=== PATIENT | female | born 1955 | race African-American/Black ===

== ENCOUNTER 2017-02-17 15:25 | Emergency (ER) | payer SELFPAY ==
[~2017-02-17] VITALS: Ht 157.5 cm; Wt 63.5 kg
[~2017-02-17 15:25] MED LIST: ASPI325T8; CYCL10TA2 PO; EZET1TAB30 PO; FLUT1DIS IH; HYDR-2758 PO; IBUP-1027 PO; IBUP200T77 PO; LISI10TA2 PO; MONT10TA6; MULT1CAP15; NITR0.4T; OMEG300C; PANT20TA2 PO; PROAIR HFA8.5 GM IH; TRAM50TA PO; VENTOLIN HFA18 GM
[2017-02-17] MEDS ORDERED: traMADol 50 MG TABLET PO ONE (16:00)
[2017-02-17 16:03] VITALS: BP 136/70
[2017-02-17 16:25] LABS: BASO # 0.1 x10^3/uL (0.0-0.2); BASO % 1 % (0-3); EOS % 1 % (0-3); HEMATOCRIT 46.2 % (36.0-47.0); HEMOGLOBIN 15.4 g/dL (12.0-15.5); LYMPH # 2.1 x10^3/uL (1.0-4.8); LYMPH % 20 % (24-48); MEAN CORPUSCULAR HEMOGLOBIN 32 pg (25-35); MEAN CORPUSCULAR HGB CONC 33 g/dL (31-37); MEAN CORPUSCULAR VOLUME 96 fL (79-100); MONO % 3 % (0-9); NEUT % 75 % (31-73); PLATELET COUNT 257 x10^3/uL (140-400); RED CELL DISTRIBUTION WIDTH 14.3 % (11.5-14.5); WHITE BLOOD COUNT 10.5 x10^3/uL (4.0-11.0)
--- NOTE | 2017-02-17 16:26 | RAD ---
2 views of the Chest 02/17/2017 5:49 PM Indication: Coughing up blood since 2:00 PM Comparison: None Findings: No pneumothorax, pleural effusion, or focal infiltrate is identified. The lungs appear mildly hyperexpanded. Correlate with evidence of COPD. Mild areas of interstitial coarsening or scarring may be present. Heart size is normal. Mild aortic calcification is noted. No acute osseous abnormalities are appreciated. Impression: Possible changes of COPD. Correlate clinically. No evidence of acute cardiopulmonary process is seen
[2017-02-17 16:34] LABS: INR 1.1 (0.8-1.1); PROTHROMBIN TIME PATIENT 13.4 SEC (11.7-14.0)
[2017-02-17 16:36] LABS: CALCIUM 9.4 mg/dL (8.5-10.1); CREATININE 0.8 mg/dL (0.6-1.0); GFR 88.8; POTASSIUM 4.3 mmol/L (3.5-5.1)
[2017-02-17 16:41] LABS: ALBUMIN 3.7 g/dL (3.4-5.0); ALBUMIN/GLOBULIN RATIO 0.9 (1.0-1.7); TOTAL BILIRUBIN 0.3 mg/dL (0.2-1.0)
--- NOTE | 2017-02-17 17:29 | PHYS DOC ---
Past Medical History Past Medical History: Arthritis, Bronchitis, Gallstones, High Cholesterol, Heart Disease, Hypertension, [place], Other Additional Past Medical Histor: seasonal allergies, R ankle fx, chronic back and ankle pain Past Surgical History: Appendectomy, Cholecystectomy, Tubal ligation, Other Additional Past Surgical Histo: ankle Alcohol Use: None Drug Use: None Adult General Chief Complaint Chief Complaint: OTHER COMPLAINTS HPI HPI Patient is a 61 year old female who presents here today secondary to an episode of spitting up blood tinged sputum. Patient reports it occurred approximately 2 PM. Patient denies any tobacco alcohol or drugs. Patient has had her flu shot. Patient denies any diabetes liver longer kidney problems. Patient portion does have hypertension. Patient has no known drug allergies. Patient is status post cholecystectomy appendectomy and bilateral tubal ligation. Patient has any fevers shakes chills nausea vomiting diarrhea or cough. Patient reports she has been sneezing has had rhinorrhea. Patient has any abdominal pain chest pain or shortness of breath. Review of systems: Constitutional: Denies fever or chills Eyes: Denies change in visual acuity, redness, or eye pain All other systems were reviewed and found to be within normal limits, except as documented in this note. Physical exam: Constitutional: Well developed, well nourished, no acute distress, non-toxic appearance. HENT: Normocephalic, atraumatic, bilateral external ears normal, Eyes: EOMI, conjunctiva normal, no discharge. Neck: Normal range of motion, no tenderness, supple, no stridor. Cardiovascular:Heart rate regular rhythm Lungs & Thorax: Bilateral breath sounds clear to auscultation Abdomen: Bowel sounds normal, soft, no tenderness, no masses, no pulsatile masses. Skin: Warm, dry, no erythema, no rash. Back: No tenderness, no CVA tenderness. Extremities: No tenderness, no cyanosis, no clubbing, ROM intact, no edema. Neurologic: Alert and oriented X 3, normal motor function, normal sensory function, no focal deficits noted. Psychologic: Affect normal, judgement normal, mood normal. Assessment and plan Patient's ER workup is been unremarkable. Patient will be discharged home in stable condition. Patient's CBC chemistry have been within normal limits. Patient's chest x-ray does not show any acute pathology. While in the ER the patient had no further episodes of hemoptysis. Patient be discharged home with instructions follow-up with a primary care physician for reevaluation and routine healthcare management issues. She has declined any pain medicines for her lower back. Current Medications Current Medications Current Medications Medications (Trade) Dose Ordered Sig/Nyla Start Time Stop Time Status Last Admin Dose Admin Tramadol HCl (Ultram) 50 mg 1X ONCE 02/17/17 16:00 02/17/17 16:01 DC Allergies Allergies Allergies Coded Allergies Type Severity Reaction Last Updated Verified simvastatin Adverse Reaction Intermediate Muscle cramping 12/18/14 Yes Current Patient Data Vital Signs Vital Signs Date Time Temp Pulse Resp B/P (MAP) Pulse Ox O2 Delivery O2 Flow Rate FiO2 02/17/17 16:03 68 136/70 (92) 95 02/17/17 15:30 99.1 16 Room Air 99.1 Lab Values Laboratory Tests Test 02/17/17 16:20 White Blood Count 10.5 x10^3/uL (4.0-11.0) Red Blood Count 4.80 x10^6/uL (3.50-5.40) Hemoglobin 15.4 g/dL (12.0-15.5) Hematocrit 46.2 % (36.0-47.0) Mean Corpuscular Volume 96 fL (79-100) Mean Corpuscular Hemoglobin 32 pg (25-35) Mean Corpuscular Hemoglobin Concent 33 g/dL (31-37) Red Cell Distribution Width 14.3 % (11.5-14.5) Platelet Count 257 x10^3/uL (140-400) Neutrophils (%) (Auto) 75 % (31-73) H Lymphocytes (%) (Auto) 20 % (24-48) L Monocytes (%) (Auto) 3 % (0-9) Eosinophils (%) (Auto) 1 % (0-3) Basophils (%) (Auto) 1 % (0-3) Neutrophils # (Auto) 7.9 x10^3uL (1.8-7.7) H Lymphocytes # (Auto) 2.1 x10^3/uL (1.0-4.8) Monocytes # (Auto) 0.4 x10^3/uL (0.0-1.1) Eosinophils # (Auto) 0.1 x10^3/uL (0.0-0.7) Basophils # (Auto) 0.1 x10^3/uL (0.0-0.2) Prothrombin Time 13.4 SEC (11.7-14.0) Prothrombin Time INR 1.1 (0.8-1.1) Sodium Level 146 mmol/L (136-145) H Potassium Level 4.3 mmol/L (3.5-5.1) Chloride Level 108 mmol/L (98-107) H Carbon Dioxide Level 31 mmol/L (21-32) Anion Gap 7 (6-14) Blood Urea Nitrogen 16 mg/dL (7-20) Creatinine 0.8 mg/dL (0.6-1.0) Estimated GFR (Cockcroft-Gault) 88.8 BUN/Creatinine Ratio 20 (6-20) Glucose Level 93 mg/dL (70-99) Calcium Level 9.4 mg/dL (8.5-10.1) Total Bilirubin 0.3 mg/dL (0.2-1.0) Aspartate Amino Transferase (AST) 13 U/L (15-37) L Alanine Aminotransferase (ALT) 15 U/L (14-59) Alkaline Phosphatase 49 U/L (46-116) Total Protein 8.0 g/dL (6.4-8.2) Albumin 3.7 g/dL (3.4-5.0) Albumin/Globulin Ratio 0.9 (1.0-1.7) L Laboratory Tests 02/17/17 16:20 Laboratory Tests 02/17/17 16:20 EKG EKG [] Radiology/Procedures Radiology/Procedures [] Course & Med Decision Making Course & Med Decision Making Pertinent Labs and Imaging studies reviewed. (See chart for details) [] Dragon Disclaimer Dragon Disclaimer This electronic medical record was generated, in whole or in part, using a voice recognition dictation system. Departure Departure Impression: Primary Impression: Hemoptysis Disposition: HOME, SELF-CARE Condition: STABLE Referrals: NON,STAFF (PCP) Patient Instructions: Hemoptysis NICOLASA VILLALOBOS MD Feb 17, 2017 17:29
== END 2017-02-17 17:37 | disposition home or self-care (01) ==
LOC: ER 15:25
DX: R04.2 Hemoptysis (principal); M19.90 Unspecified osteoarthritis, unspecified site; E78.00 Pure hypercholesterolemia, unspecified; I11.9 Hypertensive heart disease without heart failure; I25.2 Old myocardial infarction; G89.29 Other chronic pain; Z90.49 Acquired absence of other specified parts of digestive tract; Z88.8 Allergy status to other drugs, medicaments and biological substances
CPT/HCPCS: 36415; 71020; 80053; 85025; 85610; 99285-25

== ENCOUNTER 2017-03-02 20:38 | Emergency (ER) | payer SELFPAY ==
[~2017-03-02] VITALS: Ht 157.5 cm; Wt 63.5 kg
--- NOTE | 2017-03-02 20:45 | PHYS DOC ---
Past Medical History Past Medical History: Arthritis, Bronchitis, Gallstones, High Cholesterol, Heart Disease, Hypertension, [place], Other Additional Past Medical Histor: seasonal allergies, R ankle fx, chronic back and ankle pain Past Surgical History: Appendectomy, Cholecystectomy, Tubal ligation, Other Additional Past Surgical Histo: ankle Alcohol Use: None Drug Use: None Adult General Chief Complaint Chief Complaint: GI PROBLEM HPI HPI Patient is a 61 year old female presenting to the emergency department for evaluation of hemoptysis that has been an off and on issue for several weeks. She was seen for the same thing on February 17 and sent home. She says that today she has been coughing quite a bit and has been productive of a yellowish mucus and she has left-sided chest pain when she coughs. She said that after 1 coughing spell she spit out some blood from her mouth and this concerned her and she came to the emergency department. She denies any shortness of breath or pleuritic chest pain fevers chills nausea vomiting or other systemic symptoms. Smoke a pack of cigarettes a day but does not follow with a crossing watchman. Her heart rate an auction saturation are normal. Review of Systems Review of Systems Constitutional: Denies fever or chills [] HENT: + nasal congestion. No sore throat [] Respiratory: + cough. No shortness of breath [] Cardiovascular: No additional information not addressed in HPI [] GI: Denies abdominal pain, nausea, vomiting, bloody stools or diarrhea [] Neurologic: Denies headache, focal weakness or sensory changes [] All other systems were reviewed and found to be within normal limits, except as documented in this note. Current Medications Current Medications Current Medications Medications (Trade) Dose Ordered Sig/Nyla Start Time Stop Time Status Last Admin Dose Admin Albuterol/ Ipratropium (Duoneb) 3 ml 1X ONCE 03/02/17 21:15 03/02/17 21:16 DC 03/02/17 21:36 3 ML Oxymetazoline HCl (Afrin) 2 spray 1X ONCE 03/02/17 21:30 03/02/17 21:31 DC 03/02/17 21:30 2 SPRAY Allergies Allergies Allergies Coded Allergies Type Severity Reaction Last Updated Verified simvastatin Adverse Reaction Intermediate Muscle cramping 12/18/14 Yes Physical Exam Physical Exam Constitutional: Well developed, well nourished, no acute distress, non-toxic appearance. [] HENT: Normocephalic, atraumatic, bilateral external ears normal, oropharynx moist, no oral exudates, nose normal. [] Eyes: PERRLA, EOMI, conjunctiva normal, no discharge. [] Neck: Normal range of motion, no tenderness, supple, no stridor. [] Cardiovascular:Heart rate regular rhythm, no murmur [] Lungs & Thorax: Diminished Bilateral breath sounds with expiratory wheezing noted] Current Patient Data Vital Signs Vital Signs Date Time Temp Pulse Resp B/P (MAP) Pulse Ox O2 Delivery O2 Flow Rate FiO2 03/02/17 21:38 96 Room Air 03/02/17 20:43 98.4 72 14 161/77 (105) 98.4 Lab Values Laboratory Tests Test 03/02/17 21:10 03/02/17 21:30 Sodium Level 143 mmol/L (136-145) Potassium Level 3.6 mmol/L (3.5-5.1) Chloride Level 107 mmol/L (98-107) Carbon Dioxide Level 26 mmol/L (21-32) Anion Gap 10 (6-14) Blood Urea Nitrogen 12 mg/dL (7-20) Creatinine 0.8 mg/dL (0.6-1.0) Estimated GFR (Cockcroft-Gault) 88.8 BUN/Creatinine Ratio 15 (6-20) Glucose Level 105 mg/dL (70-99) H Calcium Level 9.1 mg/dL (8.5-10.1) Total Bilirubin 0.4 mg/dL (0.2-1.0) Aspartate Amino Transferase (AST) 15 U/L (15-37) Alanine Aminotransferase (ALT) 20 U/L (14-59) Alkaline Phosphatase 40 U/L (46-116) L Total Protein 7.6 g/dL (6.4-8.2) Albumin 3.9 g/dL (3.4-5.0) Albumin/Globulin Ratio 1.1 (1.0-1.7) White Blood Count 10.5 x10^3/uL (4.0-11.0) Red Blood Count 4.58 x10^6/uL (3.50-5.40) Hemoglobin 14.7 g/dL (12.0-15.5) Hematocrit 43.7 % (36.0-47.0) Mean Corpuscular Volume 96 fL (79-100) Mean Corpuscular Hemoglobin 32 pg (25-35) Mean Corpuscular Hemoglobin Concent 34 g/dL (31-37) Red Cell Distribution Width 14.1 % (11.5-14.5) Platelet Count 233 x10^3/uL (140-400) Neutrophils (%) (Auto) 67 % (31-73) Lymphocytes (%) (Auto) 27 % (24-48) Monocytes (%) (Auto) 4 % (0-9) Eosinophils (%) (Auto) 2 % (0-3) Basophils (%) (Auto) 1 % (0-3) Neutrophils # (Auto) 7.0 x10^3uL (1.8-7.7) Lymphocytes # (Auto) 2.8 x10^3/uL (1.0-4.8) Monocytes # (Auto) 0.4 x10^3/uL (0.0-1.1) Eosinophils # (Auto) 0.2 x10^3/uL (0.0-0.7) Basophils # (Auto) 0.1 x10^3/uL (0.0-0.2) Prothrombin Time 14.0 SEC (11.7-14.0) Prothrombin Time INR 1.2 (0.8-1.1) H PTT 29 SEC (24-38) Laboratory Tests 03/02/17 21:30 Laboratory Tests 03/02/17 21:10 EKG EKG [] Radiology/Procedures Radiology/Procedures Chest x-ray shows normal mediastinum and normal heart size no obvious free air pneumothorax or opacity. Course & Med Decision Making Course & Med Decision Making Patient with trace hemoptysis and no other concerning signs or symptoms. Is likely from bronchitis and I do not suspect a massive amount of bleeding in her chest or pulmonary embolus him at this time given she appears well with normal vital signs. I do think that she should be seen by a crossing watchman as cancer is a consideration giving her prolonged smoking history. Her to use Afrin twice daily use her nebulizers more often stop smoking and to see the crossing watchman as soon as possible and come back to the ED sooner with worsening pain shortness of breath or other general concerns. Patient says that it hurts when she coughs I will prescribe her [place] for now. Patient aware and agreeable with plan for discharge and verbalized understanding of the need for short-term follow-up in the strict ED return precautions discussed as above. Dragon Disclaimer Dragon Disclaimer This electronic medical record was generated, in whole or in part, using a voice recognition dictation system. Departure Departure Impression: Primary Impression: Bronchitis Additional Impression: Hemoptysis Disposition: HOME, SELF-CARE Condition: STABLE Referrals: LISSET GUDINO MD Patient Instructions: Hemoptysis Additional Instructions: USE AFRIN TWICE DAILY AND YOUR NEBULIZER EVERY 4-6 HOURS. STOP SMOKING. FOLLOW WITH THE LUNG DOCTOR SOON YOU CAN AND COME BACK TO THE ED WITH WORSENING PAIN, SOA, OR OTHER GENERAL CONCERNS. THANK YOU! Scripts Hydrocodone/Apap 5-325 (NORCO 5-325 TABLET) 1 Each Tablet 1 TAB PO PRN Q6HRS Y for PAIN, #14 TAB 0 Refills Prov: JENNIFER GEORGES DO 03/02/17 Problem Qualifiers JENNIFER GEORGES DO Mar 02, 2017 20:45
[2017-03-02] MEDS ORDERED: IPRATRPIUM/ALBUTEROL 0.5/2.5MG 3 ML NEBU. NEB ONE (21:15)
[2017-03-02] MEDS ORDERED: OXYMETAZOLINE 0.05% NASAL SPRAY 30ML BOTTLE. NS ONE (21:30)
[2017-03-02 21:35] LABS: CALCIUM 9.1 mg/dL (8.5-10.1); CREATININE 0.8 mg/dL (0.6-1.0); GFR 88.8; POTASSIUM 3.6 mmol/L (3.5-5.1)
[2017-03-02 21:40] LABS: ALBUMIN 3.9 g/dL (3.4-5.0); ALBUMIN/GLOBULIN RATIO 1.1 (1.0-1.7); TOTAL BILIRUBIN 0.4 mg/dL (0.2-1.0); TOTAL PROTEIN 7.6 g/dL (6.4-8.2)
[2017-03-02 21:40] LABS: BASO # 0.1 x10^3/uL (0.0-0.2); BASO % 1 % (0-3); EOS % 2 % (0-3); HEMATOCRIT 43.7 % (36.0-47.0); HEMOGLOBIN 14.7 g/dL (12.0-15.5); LYMPH # 2.8 x10^3/uL (1.0-4.8); LYMPH % 27 % (24-48); MEAN CORPUSCULAR HEMOGLOBIN 32 pg (25-35); MEAN CORPUSCULAR HGB CONC 34 g/dL (31-37); MEAN CORPUSCULAR VOLUME 96 fL (79-100); MONO % 4 % (0-9); NEUT % 67 % (31-73); PLATELET COUNT 233 x10^3/uL (140-400); RED BLOOD COUNT 4.58 x10^6/uL (3.50-5.40); RED CELL DISTRIBUTION WIDTH 14.1 % (11.5-14.5); WHITE BLOOD COUNT 10.5 x10^3/uL (4.0-11.0)
[2017-03-02 21:49] LABS: INR 1.2 (0.8-1.1)
[2017-03-02 21:54] VITALS: BP 143/71
[2017-03-02] MEDS ORDERED: HYDR-971 PO (22:00)
--- NOTE | 2017-03-03 08:14 | RAD ---
EXAM: Chest 2 views. HISTORY: Left chest pain, hemoptysis, hypertension. COMPARISON: 02/17/2017. FINDINGS: Frontal and lateral views of the chest are obtained. Hyperinflation suggests chronic obstructive pulmonary disease. There appears to be mild airspace infiltrate in the lingula. Linear opacities in the right base are mildly increased. There are atherosclerotic calcifications of the aorta. There is no pneumothorax or pleural effusion. The heart is not enlarged. IMPRESSION: 1. Mildly increased bibasilar infiltrates. Correlate for aspiration or atypical pneumonic process. Recommend ongoing follow-up for hemoptysis. 2. Hyperinflation suggests chronic obstructive pulmonary disease.
== END 2017-03-02 22:17 | disposition home or self-care (01) ==
LOC: ER 20:38
DX: R04.2 Hemoptysis (principal); J40 Bronchitis, not specified as acute or chronic; G89.29 Other chronic pain; I11.9 Hypertensive heart disease without heart failure; E78.00 Pure hypercholesterolemia, unspecified; I25.2 Old myocardial infarction; F17.210 Nicotine dependence, cigarettes, uncomplicated; Z90.49 Acquired absence of other specified parts of digestive tract; Z90.710 Acquired absence of both cervix and uterus; Z88.8 Allergy status to other drugs, medicaments and biological substances
CPT/HCPCS: 36415; 71020; 80053; 85025; 85610; 85730; 94640; 99285; J7620

== ENCOUNTER 2017-04-26 11:56 | Emergency (ER) | payer SELFPAY ==
[2017-04-26 12:46] LABS: ADD MAN DIFF? NO; BASO # 0.1 x10^3/uL (0.0-0.2); BASO % 1 % (0-3); EOS # 0.1 x10^3/uL (0.0-0.7); EOS % 1 % (0-3); HEMATOCRIT 44.2 % (36.0-47.0); HEMOGLOBIN 14.8 g/dL (12.0-15.5); LYMPH % 23 % (24-48); MEAN CORPUSCULAR HEMOGLOBIN 33 pg (25-35); MEAN CORPUSCULAR HGB CONC 34 g/dL (31-37); MEAN CORPUSCULAR VOLUME 97 fL (79-100); MONO # 0.2 x10^3/uL (0.0-1.1); MONO % 3 % (0-9); NEUT # 6.6 x10^3uL (1.8-7.7); NEUT % 73 % (31-73); PLATELET COUNT 251 x10^3/uL (140-400); RED BLOOD COUNT 4.55 x10^6/uL (3.50-5.40); RED CELL DISTRIBUTION WIDTH 14.1 % (11.5-14.5)
[2017-04-26 12:55] LABS: INR 1.1 (0.8-1.1); PROTHROMBIN TIME PATIENT 13.5 SEC (11.7-14.0)
[2017-04-26 13:03] LABS: ANION GAP 14 (6-14); BLOOD UREA NITROGEN 13 mg/dL (7-20); BUN/CREATININE RATIO 19 (6-20); CALCIUM 9.2 mg/dL (8.5-10.1); CARBON DIOXIDE 24 mmol/L (21-32); CHLORIDE 106 mmol/L (98-107); CREATININE 0.7 mg/dL (0.6-1.0); GFR 103.6; GLUCOSE 166 mg/dL (70-99); POTASSIUM 3.9 mmol/L (3.5-5.1); SODIUM 144 mmol/L (136-145)
[2017-04-26 13:10] LABS: ALBUMIN/GLOBULIN RATIO 1.1 (1.0-1.7); ALK PHOS 43 U/L (46-116); ALT (SGPT) 17 U/L (14-59); AST (SGOT) 14 U/L (15-37); TOTAL BILIRUBIN 0.5 mg/dL (0.2-1.0); TOTAL PROTEIN 7.8 g/dL (6.4-8.2)
[2017-04-26 13:14] LABS: CKMB INDEX 0.6 % (0-4); CKMB MASS 0.5 ng/mL (0.0-3.6); CREATINE KINASE 89 U/L (26-192)
[2017-04-26 13:14] LABS: NT-PRO BNP 118 pg/mL (0-124)
[2017-04-26 13:15] LABS: TROPONINI < 0.017 ng/mL (0.000-0.055)
[2017-04-26] MEDS ORDERED: NITROGLYCERIN SUBLINGUAL 0.4 MG BOTTLE OF 25. SL (14:30)
== END 2017-04-26 15:40 | disposition left against medical advice (07) ==
LOC: ER 15:40
DX: R07.89 Other chest pain (principal); M25.512 Pain in left shoulder; M25.562 Pain in left knee; M19.90 Unspecified osteoarthritis, unspecified site; I25.10 Atherosclerotic heart disease of native coronary artery without angina pectoris; E78.00 Pure hypercholesterolemia, unspecified; I11.9 Hypertensive heart disease without heart failure; I25.2 Old myocardial infarction; F17.200 Nicotine dependence, unspecified, uncomplicated; G89.29 Other chronic pain; Z79.82 Long term (current) use of aspirin; Z90.49 Acquired absence of other specified parts of digestive tract; Z98.51 Tubal ligation status; Z88.8 Allergy status to other drugs, medicaments and biological substances
CPT/HCPCS: 36415; 71045; 80053; 82553; 83735; 83880; 84484; 85025; 85610; 93005; 99285-25

== ENCOUNTER 2018-05-01 10:45 | Emergency (ER) | payer SELFPAY ==
[~2018-05-01] VITALS: Ht 157.5 cm; Wt 63.5 kg
[~2018-05-01 10:45] MED LIST changes: +ALBU2.5V8 IH; -HYDR-2758 PO; +HYDR-2761 PO; +HYDR-3164 PO; -PROAIR HFA8.5 GM IH
[2018-05-01] MEDS ORDERED: ASPIRIN 325 MG TABLET PO ONE (11:30)
[2018-05-01] MEDS ORDERED: IV NORMAL SALINE 1000ML BAG 1,000 ML IV ONE (11:30)
[2018-05-01 11:35] LABS: BILIRUBIN,URINE NEGATIVE (NEG); CLARITY,URINE CLEAR; COLOR,URINE YELLOW; NITRITE,URINE NEGATIVE (NEG); PROTEIN,URINE NEGATIVE (NEG-TRACE); UROBILINOGEN,URINE 0.2 mg/dL (0.2 mg/dL)
--- NOTE | 2018-05-01 11:35 | EKG ---
[facility] [address] [place] [address] Test Date: 2018-05-01 Test Time: 10:59:23 Pat Name: ROGER BILLINGSLEY Department: Room: Gender: F President + Publisher: : 1955 Requested By: ANASTASIA BARBOSA Order Number: [id number] Reading MD: Measurements Intervals [place] Rate: 75 P: 45 [place]: 112 QRS: -18 QRSD: 72 T: 59 QT: 346 QTc: 389 Interpretive Statements SINUS RHYTHM LEFTWARD AXIS CONSIDER LEFT VENTRICULAR HYPERTROPHY ST & T ABNORMALITY, CONSIDER ANTEROLATERAL ISCHEMIA OR LEFT VENTRICULAR STRAIN T ABNORMALITY IN ANTERIOR LEADS ABNORMAL ECG RI6.01 No previous ECG available for comparison
[2018-05-01 11:42] LABS: BASO # 0.1 x10^3/uL (0.0-0.2); BASO % 1 % (0-3); EOS % 0 % (0-3); HEMOGLOBIN 15.9 g/dL (12.0-15.5); LYMPH # 2.1 x10^3/uL (1.0-4.8); LYMPH % 22 % (24-48); MEAN CORPUSCULAR HEMOGLOBIN 33 pg (25-35); MEAN CORPUSCULAR HGB CONC 35 g/dL (31-37); MEAN CORPUSCULAR VOLUME 95 fL (79-100); MONO # 0.3 x10^3/uL (0.0-1.1); MONO % 4 % (0-9); NEUT # 7.2 x10^3uL (1.8-7.7); NEUT % 74 % (31-73); PLATELET COUNT 250 x10^3/uL (140-400); RED BLOOD COUNT 4.82 x10^6/uL (3.50-5.40); RED CELL DISTRIBUTION WIDTH 13.7 % (11.5-14.5); WHITE BLOOD COUNT 9.7 x10^3/uL (4.0-11.0)
[2018-05-01 11:43] LABS: BACTERIA,URINE FEW /HPF (0-FEW); RBC,URINE RARE /HPF (0-2); SQUAMOUS EPITHELIAL CELL,UR FEW /LPF; WBC,URINE RARE /HPF (0-4)
[2018-05-01 11:49] LABS: CREATININE 0.7 mg/dL (0.6-1.0); GFR 103.3; POTASSIUM 3.8 mmol/L (3.5-5.1)
[2018-05-01 11:56] LABS: ALBUMIN/GLOBULIN RATIO 1.1 (1.0-1.7); MAGNESIUM 1.9 mg/dL (1.8-2.4); PROTHROMBIN TIME PATIENT 13.9 SEC (11.7-14.0); TOTAL BILIRUBIN 0.6 mg/dL (0.2-1.0); TOTAL PROTEIN 7.7 g/dL (6.4-8.2)
[2018-05-01 11:59] LABS: D-DIMER 0.35 ug/mlFEU (0.00-0.50)
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
[2018-05-01 12:30] VITALS: BP 142/72
--- NOTE | 2018-05-01 12:53 | RAD ---
PROCEDURE: CHEST PA LATERAL CLINICAL INDICATION: COUGH COMPARISON: 04/26/2017 FINDINGS: Heart is normal in size. Lungs are hyperinflated without focal consolidation. No pneumothorax or pleural effusion. Visualized bony thorax is within normal limits. IMPRESSION: Findings of COPD. Electronically signed by: Srinivasan Gallegos DO (05/01/2018 12:49 PM) [id number]
[2018-05-01] MEDS ORDERED: ORPH100T PO (14:08)
== END 2018-05-01 14:21 | disposition home or self-care (01) ==
LOC: ER 10:45
DX: M25.512 Pain in left shoulder (principal); G89.29 Other chronic pain; R68.84 Jaw pain; M79.662 Pain in left lower leg; R05 Cough; I25.10 Atherosclerotic heart disease of native coronary artery without angina pectoris; E78.00 Pure hypercholesterolemia, unspecified; I11.9 Hypertensive heart disease without heart failure; I25.2 Old myocardial infarction; Z90.89 Acquired absence of other organs; Z90.49 Acquired absence of other specified parts of digestive tract; Z98.51 Tubal ligation status; Z88.8 Allergy status to other drugs, medicaments and biological substances
CPT/HCPCS: 36415; 71046; 80053; 81001; 82553; 83690; 83735; 83880; 84484; 85025; 85379; 85610; 85730; 93005; 99284; J7030

== ENCOUNTER 2018-08-15 17:16 | Emergency (ER) | payer SELFPAY ==
[~2018-08-15] VITALS: Ht 157.5 cm; Wt 59.0 kg
[~2018-08-15 17:16] MED LIST changes: +ORPH100T PO
--- NOTE | 2018-08-15 18:20 | PHYS DOC ---
Past Medical History Past Medical History: Arthritis, Bronchitis, CAD, Diabetes-Type II, Gallstones, High Cholesterol, Heart Disease, Hypertension, [place], Other Additional Past Medical Histor: seasonal allergies, R ankle fx, chronic back and ankle pain, angina Past Surgical History: Appendectomy, Cholecystectomy, Tubal ligation, Other Additional Past Surgical Histo: ankle Smoking: Cigarettes, 1 Pack Per Day Alcohol Use: None Drug Use: Marijuana Adult General Chief Complaint Chief Complaint: Neck Pain HPI HPI Patient is a 63-year-old female who presents with right shoulder pain since Monday. She describes the pain as intermittent and states it radiates down the right arm. States that when her rubs it gets better. Also states that it gets better when she rests. The pain is 5 out of 10 throbs and aches. Denies any other associated symptoms. Review of Systems Review of Systems Constitutional: Denies fever or chills [] Eyes: Denies change in visual acuity, redness, or eye pain [] HENT: Denies nasal congestion or sore throat [] Respiratory: Denies cough or shortness of breath [] Cardiovascular: Denies chest pain or syncope GI: Denies abdominal pain, nausea, vomiting, bloody stools or diarrhea [] : Denies dysuria or hematuria [] Musculoskeletal: Denies back pain or joint pain [] Integument: Denies rash or skin lesions [] Neurologic: Denies headache, focal weakness or sensory changes [] Endocrine: Denies polyuria or polydipsia [] Complete systems were reviewed and found to be within normal limits, except as documented in this note. Family History Family History Has had 3 sisters pass away due to cardiac reasons at ages 56, early 70's, and in her early 60's. Current Medications Current Medications Current Medications Medications (Trade) Dose Ordered Sig/Nyla Start Time Stop Time Status Last Admin Dose Admin Ketorolac Tromethamine (Toradol 15mg Vial) 15 mg 1X ONCE 08/15/18 19:00 08/15/18 19:01 Nitroglycerin (Nitrostat) 0.4 mg PRN Q5MIN PRN 08/15/18 18:15 08/16/18 18:14 08/15/18 18:44 0.4 MG Allergies Allergies Allergies Coded Allergies Type Severity Reaction Last Updated Verified simvastatin Adverse Reaction Intermediate Muscle cramping 9/10/15 Yes Physical Exam Physical Exam Constitutional: Well developed, well nourished, no acute distress, non-toxic appearance. [] HENT: Normocephalic, atraumatic, bilateral external ears normal, oropharynx moist, no oral exudates, nose normal. [] Eyes: PERRLA, EOMI, conjunctiva normal, no discharge. [] Neck: Normal range of motion, no tenderness, supple, no stridor. [] Cardiovascular:Heart rate regular rhythm, no murmur [] Lungs & Thorax: Bilateral breath sounds clear to auscultation [] Abdomen: Soft, no tenderness, no masses, no pulsatile masses. [] Skin: Warm, dry, no erythema, no rash. [] Extremities: No tenderness with the exception of the right shoulder, no cyanosis, no clubbing, ROM intact, no edema. [] Neurologic: Alert and oriented X 3, normal motor function, normal sensory function, no focal deficits noted. [] Psychologic: Affect normal, judgement normal, mood normal. [] Current Patient Data Vital Signs Vital Signs Date Time Temp Pulse Resp B/P (MAP) Pulse Ox O2 Delivery O2 Flow Rate FiO2 08/15/18 18:44 78 156/75 08/15/18 17:45 98.8 16 98 Room Air 98.8 Lab Values Laboratory Tests Test 08/15/18 18:20 White Blood Count 9.7 x10^3/uL (4.0-11.0) Red Blood Count 4.58 x10^6/uL (3.50-5.40) Hemoglobin 14.7 g/dL (12.0-15.5) Hematocrit 43.7 % (36.0-47.0) Mean Corpuscular Volume 96 fL (79-100) Mean Corpuscular Hemoglobin 32 pg (25-35) Mean Corpuscular Hemoglobin Concent 34 g/dL (31-37) Red Cell Distribution Width 13.7 % (11.5-14.5) Platelet Count 250 x10^3/uL (140-400) Neutrophils (%) (Auto) 61 % (31-73) Lymphocytes (%) (Auto) 33 % (24-48) Monocytes (%) (Auto) 4 % (0-9) Eosinophils (%) (Auto) 1 % (0-3) Basophils (%) (Auto) 1 % (0-3) Neutrophils # (Auto) 5.9 x10^3uL (1.8-7.7) Lymphocytes # (Auto) 3.2 x10^3/uL (1.0-4.8) Monocytes # (Auto) 0.4 x10^3/uL (0.0-1.1) Eosinophils # (Auto) 0.1 x10^3/uL (0.0-0.7) Basophils # (Auto) 0.1 x10^3/uL (0.0-0.2) Sodium Level 141 mmol/L (136-145) Potassium Level 3.8 mmol/L (3.5-5.1) Chloride Level 104 mmol/L (98-107) Carbon Dioxide Level 28 mmol/L (21-32) Anion Gap 9 (6-14) Blood Urea Nitrogen 8 mg/dL (7-20) Creatinine 0.8 mg/dL (0.6-1.0) Estimated GFR (Cockcroft-Gault) 88.2 BUN/Creatinine Ratio 10 (6-20) Glucose Level 108 mg/dL (70-99) H Calcium Level 9.6 mg/dL (8.5-10.1) Total Bilirubin 0.2 mg/dL (0.2-1.0) Aspartate Amino Transferase (AST) 17 U/L (15-37) Alanine Aminotransferase (ALT) 20 U/L (14-59) Alkaline Phosphatase 48 U/L (46-116) Troponin I Quantitative 0.032 ng/mL (0.000-0.055) Total Protein 7.9 g/dL (6.4-8.2) Albumin 3.9 g/dL (3.4-5.0) Albumin/Globulin Ratio 1.0 (1.0-1.7) Laboratory Tests 08/15/18 18:20 Laboratory Tests 08/15/18 18:20 EKG EKG EKG interpreted by Dr. Abrams at 1752. No STEMI, Sinus Rhythm with a rate of 75.[] Radiology/Procedures Radiology/Procedures []PATIENT: ROGER BILLINGSLEY SACCOUNT: [id number]#: [id number] : 1955 LOCATION: ER AGE: 63 SEX: F EXAM STATUS: REG ER ORD. PHYSICIAN: ANASTASIA DEVRIES APRN REASON: Atypical chest pain PROCEDURE: CHEST PA & LATERAL EXAM: Chest, 2 views. HISTORY: Atypical chest pain. COMPARISON: 05/01/2018. FINDINGS: 2 views the chest are obtained. There is no infiltrate, pleural effusion or pneumothorax. The heart is normal in size. There are suspected bilateral lower lobe atelectasis. There is hyperinflation likely due to emphysema. IMPRESSION: Suspected emphysema with bilateral lower lobe atelectasis. Electronically signed by: Lucero Ng MD (08/15/2018 6:50 PM) [facility] Course & Med Decision Making Course & Med Decision Making Pertinent Labs and Imaging studies reviewed. (See chart for details) Discussed patient signs and symptoms with patient. Discussed that it appears to be musculoskeletal pain but with her history and risk factors cannot rule out atypical chest pain. Will do a chest pain workup in the ER. She is agreeable to this. I talked to her about admission for additional workup. She declines to be admitted. Labs are unremarkable. Troponin is negative. Patient pain did not improve with nitroglycerin tablets. Will d/c home with Flexeril and give shot of Toradol. Patient is agreeable. Dragon Disclaimer Dragon Disclaimer This electronic medical record was generated, in whole or in part, using a voice recognition dictation system. Departure Departure Impression: Primary Impression: Shoulder pain, acute Disposition: 01 HOME, SELF-CARE Condition: STABLE Referrals: TAMIKO STEELE APRN (PCP) Patient Instructions: Shoulder Pain, [id number] Additional Instructions: Please follow up with your primary care doctor about possible emphysema. If symptoms worsen come back. Take medications as directed. Scripts Cyclobenzaprine Hcl (CYCLOBENZAPRINE HCL) 10 Mg Tablet 1 TAB PO TID PRN for MUSCLE SPASMS, #30 TAB Prov: ANASTASIA DEVRIES APRN 08/15/18 Problem Qualifiers Primary Impression: Shoulder pain, acute Laterality: right Qualified Codes: M25.511 - Pain in right shoulder ANASTASIA DEVRIES APRN August 15, 2018 18:20
[2018-08-15] MEDS: NITROGLYCERIN SUBLINGUAL 0.4 MG BOTTLE OF 25. SL PRN ×2 (18:27→18:44)
[2018-08-15 18:28] LABS: BASO # 0.1 x10^3/uL (0.0-0.2); BASO % 1 % (0-3); EOS # 0.1 x10^3/uL (0.0-0.7); EOS % 1 % (0-3); HEMATOCRIT 43.7 % (36.0-47.0); HEMOGLOBIN 14.7 g/dL (12.0-15.5); LYMPH # 3.2 x10^3/uL (1.0-4.8); LYMPH % 33 % (24-48); MEAN CORPUSCULAR HEMOGLOBIN 32 pg (25-35); MEAN CORPUSCULAR HGB CONC 34 g/dL (31-37); MEAN CORPUSCULAR VOLUME 96 fL (79-100); MONO # 0.4 x10^3/uL (0.0-1.1); MONO % 4 % (0-9); NEUT # 5.9 x10^3uL (1.8-7.7); NEUT % 61 % (31-73); PLATELET COUNT 250 x10^3/uL (140-400); RED BLOOD COUNT 4.58 x10^6/uL (3.50-5.40); RED CELL DISTRIBUTION WIDTH 13.7 % (11.5-14.5); WHITE BLOOD COUNT 9.7 x10^3/uL (4.0-11.0)
[2018-08-15 18:37] LABS: CALCIUM 9.6 mg/dL (8.5-10.1); CREATININE 0.8 mg/dL (0.6-1.0)
[2018-08-15 18:38] LABS: GFR 88.2; POTASSIUM 3.8 mmol/L (3.5-5.1)
[2018-08-15 18:43] LABS: ALBUMIN 3.9 g/dL (3.4-5.0); TOTAL BILIRUBIN 0.2 mg/dL (0.2-1.0); TOTAL PROTEIN 7.9 g/dL (6.4-8.2)
--- NOTE | 2018-08-15 18:53 | RAD ---
EXAM: Chest, 2 views. HISTORY: Atypical chest pain. COMPARISON: 05/01/2018. FINDINGS: 2 views the chest are obtained. There is no infiltrate, pleural effusion or pneumothorax. The heart is normal in size. There are suspected bilateral lower lobe atelectasis. There is hyperinflation likely due to emphysema. IMPRESSION: Suspected emphysema with bilateral lower lobe atelectasis. Electronically signed by: Lucero Ng MD (08/15/2018 6:50 PM) [facility]
[2018-08-15] MEDS ORDERED: CYCL10TA2 PO (18:57)
[2018-08-15] MEDS ORDERED: KETOROLAC 15 MG/ML VIAL. IV ONE (19:00)
[2018-08-15 19:16] VITALS: BP 134/71
--- NOTE | 2018-08-16 07:25 | EKG ---
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
== END 2018-08-15 19:25 | disposition home or self-care (01) ==
LOC: ER 17:16
DX: M25.511 Pain in right shoulder (principal); M19.90 Unspecified osteoarthritis, unspecified site; I11.9 Hypertensive heart disease without heart failure; I25.10 Atherosclerotic heart disease of native coronary artery without angina pectoris; E78.00 Pure hypercholesterolemia, unspecified; I25.2 Old myocardial infarction; F17.210 Nicotine dependence, cigarettes, uncomplicated; Z90.49 Acquired absence of other specified parts of digestive tract; Z98.51 Tubal ligation status; Z90.89 Acquired absence of other organs; Z88.8 Allergy status to other drugs, medicaments and biological substances
CPT/HCPCS: 36415; 71046; 80053; 84484; 85025; 93005; 96374; 99285; J1885

== ENCOUNTER 2019-11-12 12:49 | Emergency (ER) | payer SELFPAY ==
[~2019-11-12] VITALS: Ht 160 cm; Wt 62.0 kg
[~2019-11-12 12:49] MED LIST changes: +MONT10TA49; -MONT10TA6; -NITR0.4T; +NITR0.4T24
[2019-11-12] MEDS: HYDROcodone/APAP 5/325MG 1 TAB TABLET PO ONE ×2 (13:15→14:11)
--- NOTE | 2019-11-12 13:21 | EKG ---
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
[2019-11-12 13:32] LABS: BASO # 0.1 x10^3/uL (0.0-0.2); BASO % 1 % (0-3); EOS # 0.1 x10^3/uL (0.0-0.7); EOS % 1 % (0-3); HEMATOCRIT 42.2 % (36.0-47.0); HEMOGLOBIN 14.5 g/dL (12.0-15.5); LYMPH % 21 % (24-48); MEAN CORPUSCULAR HEMOGLOBIN 33 pg (25-35); MEAN CORPUSCULAR HGB CONC 34 g/dL (31-37); MEAN CORPUSCULAR VOLUME 95 fL (79-100); MONO # 0.2 x10^3/uL (0.0-1.1); MONO % 3 % (0-9); NEUT # 7.1 x10^3/uL (1.8-7.7); NEUT % 75 % (31-73); PLATELET COUNT 244 x10^3/uL (140-400); RED BLOOD COUNT 4.43 x10^6/uL (3.50-5.40); RED CELL DISTRIBUTION WIDTH 13.7 % (11.5-14.5); WHITE BLOOD COUNT 9.5 x10^3/uL (4.0-11.0)
--- NOTE | 2019-11-12 13:45 | RAD ---
AP chest. HISTORY: Left arm pain, history of angina AP view was taken of the chest. Heart is normal in size. There is no effusion. There is linear scarring or atelectasis at the right costophrenic angle. There are no other infiltrates. There is not evidence of heart failure. IMPRESSION: 1. Basilar linear scarring or atelectasis without other infiltrates. Electronically signed by: William Hernandez MD (11/12/2019 1:42 PM) [id number]
[2019-11-12 13:47] LABS: PROTHROMBIN TIME PATIENT 13.6 SEC (11.7-14.0)
--- NOTE | 2019-11-12 13:50 | PHYS DOC ---
Past Medical History Past Medical History: Arthritis, Bronchitis, CAD, Diabetes-Type II, Gallstones, High Cholesterol, Heart Disease, Hypertension, [place], Other Additional Past Medical Histor: seasonal allergies, R ankle fx, chronic back and ankle pain, angina Past Surgical History: Appendectomy, Cholecystectomy, Tubal ligation, Other Additional Past Surgical Histo: ankle Smoking Status: Current Every Day Smoker Alcohol Use: None Drug Use: Marijuana General Adult EDM: Chief Complaint: UPPER EXTREMITY PAIN HPI: HPI: Patient is a 64 year old female who presents with at 3:00 this morning she been having left arm pain that goes from her shoulder and extends down to her hand. She states it feels like it is the muscle and is throbbing. She rates it a 6 out of 10. She states nothing makes it worse or better. She states it is been continuous. She states that she does not think she was sleeping on it wrong. Patient does take aspirin 325. She does have a history of a small OR that she states that she has nitro for. She states that she has angina maybe once or twice a month. She states she went ahead and took 3 nitro before coming but they are approximately about 30 minutes apart but it did not help anything. Patient denies chest pain, shortness of breath, headache, dizziness, numbness or tingling, extremity swelling, nausea, vomiting, jaw pain, vision changes, focal weakness, abdominal pain. Patient has a history of CAD, high cholesterol, diabetes, hypertension, smoker, asthma. Review of Systems: Review of Systems: Constitutional: Denies fever or chills. [] Eyes: Denies change in visual acuity. [] HENT: Denies nasal congestion or sore throat. [] Respiratory: Denies cough or shortness of breath. [] Cardiovascular: Denies chest pain or edema. [] GI: Denies abdominal pain, nausea, vomiting, bloody stools or diarrhea. [] : Denies dysuria. [] Musculoskeletal: Denies back pain or joint pain. Left arm from shoulder to hand throbbing pain [] Integument: Denies rash. [] Neurologic: Denies headache, focal weakness or sensory changes. [] Endocrine: Denies polyuria or polydipsia. [] Lymphatic: Denies swollen glands. [] Psychiatric: Denies depression or anxiety. [] Heart Score: HEART Score for Chest Pain: HEART Score for Chest Pain Response (Comments) Value History Slighlty/Non-Suspicious 0 ECG Normal 0 Age >45 - < 65 1 Risk Factors >3 Risk Factors or Hx CAD 2 Troponin < Normal Limit 0 Total 3 Risk Factors: Risk Factors: DM, Current or recent (<one month) smoker, HTN, HLP, family history of CAD, obesity. Risk Scores: Score 0 - 3: 2.5% MACE over next 6 weeks - Discharge Home Score 4 - 6: 20.3% MACE over next 6 weeks - Admit for Clinical Observation Score 7 - 10: 72.7% MACE over next 6 weeks - Early Invasive Strategies Current Medications: Current Medications Medications (Trade) Dose Ordered Sig/Nyla Start Time Stop Time Status Last Admin Dose Admin Acetaminophen/ Hydrocodone Bitart (Lortab 5/325) 1 tab 1X ONCE 11/12/19 13:15 11/12/19 13:16 DC Allergies: Allergies: Allergies Coded Allergies Type Severity Reaction Last Updated Verified simvastatin Adverse Reaction Intermediate Muscle cramping 12/18/14 Yes Physical Exam: PE: Constitutional: Well developed, well nourished, no acute distress, non-toxic appearance. [] HENT: Normocephalic, atraumatic, bilateral external ears normal, oropharynx moist, no oral exudates, nose normal. [] Eyes: PERRLA, EOMI, conjunctiva normal, no discharge. [] Neck: Normal range of motion, no tenderness, supple, no stridor. [] Cardiovascular:Heart rate regular rhythm, no murmur [] Lungs & Thorax: Bilateral breath sounds clear to auscultation [] Abdomen: Bowel sounds normal, soft, no tenderness, no masses, no pulsatile masses. [] Skin: Warm, dry, no erythema, no rash. [] Back: No tenderness, no CVA tenderness. [] Extremities: No tenderness, no cyanosis, no clubbing, ROM intact, no edema. [] Neurologic: Alert and oriented X 3, normal motor function, normal sensory function, no focal deficits noted. [] Psychologic: Affect normal, judgement normal, mood normal. Normal physical exam. [] Current Patient Data: Labs: Laboratory Tests Test 11/12/19 12:20 White Blood Count 9.5 x10^3/uL (4.0-11.0) Red Blood Count 4.43 x10^6/uL (3.50-5.40) Hemoglobin 14.5 g/dL (12.0-15.5) Hematocrit 42.2 % (36.0-47.0) Mean Corpuscular Volume 95 fL (79-100) Mean Corpuscular Hemoglobin 33 pg (25-35) Mean Corpuscular Hemoglobin Concent 34 g/dL (31-37) Red Cell Distribution Width 13.7 % (11.5-14.5) Platelet Count 244 x10^3/uL (140-400) Neutrophils (%) (Auto) 75 % (31-73) H Lymphocytes (%) (Auto) 21 % (24-48) L Monocytes (%) (Auto) 3 % (0-9) Eosinophils (%) (Auto) 1 % (0-3) Basophils (%) (Auto) 1 % (0-3) Neutrophils # (Auto) 7.1 x10^3/uL (1.8-7.7) Lymphocytes # (Auto) 2.0 x10^3/uL (1.0-4.8) Monocytes # (Auto) 0.2 x10^3/uL (0.0-1.1) Eosinophils # (Auto) 0.1 x10^3/uL (0.0-0.7) Basophils # (Auto) 0.1 x10^3/uL (0.0-0.2) Laboratory Tests 11/12/19 12:20 Vital Signs: Vital Signs Date Time Temp Pulse Resp B/P (MAP) Pulse Ox O2 Delivery O2 Flow Rate FiO2 11/12/19 13:00 98.4 88 16 169/80 (109) 100 Room Air 98.4 EKG: EK and read by Dr Campbell as Sinus Rhythm and no STEMI [address] Campbell as sinus Rhythm and no STEMI and is unchanged from previous EKG.[] Radiology/Procedures: Radiology/Procedures: [] Impression: [facility] [address] [place] [address] IMAGING REPORT Signed PATIENT: ROGER BILLINGSLEY SACCOUNT: [id number] : 1955 LOCATION: ER AGE: 64 SEX: F EXAM STATUS: REG ER ORD. PHYSICIAN: RM CERON APRN REASON: left arm pain, hx angina/OR PROCEDURE: PORTABLE CHEST 1V AP chest. HISTORY: Left arm pain, history of angina AP view was taken of the chest. Heart is normal in size. There is no effusion. There is linear scarring or atelectasis at the right costophrenic angle. There are no other infiltrates. There is not evidence of heart failure. IMPRESSION: 1. Basilar linear scarring or atelectasis without other infiltrates. Electronically signed by: William Hernandez MD (11/12/2019 1:42 PM) [id number] DICTATED and SIGNED BY: WILLIAM HERNANDEZ MD DATE: 11/12/19 134 Course & Med Decision Making: Course & Med Decision Making Pertinent Labs and Imaging studies reviewed. (See chart for details) No tenderness to the left arm with palpation. There is no swelling to the extr emity. Strong left radial pulse. Patient has full range of motion of the arm at all joints. No swelling or deformities. Denies injury. See HPI. Cap refill less than 3 seconds. No extremity edema. Alert and oriented x4. Ambulatory with a steady gait. Speaks in full complete sentences. PERRLA. No focal weaknesses. Patient took a aspirin 325 prior to arrival. I cannot reproduce any pain with palpation or movement. She states nothing makes it worse or better. I have spoken to Dr. Campbell about this patient and the care plan. A second EKG is done 3 hours after the first and there is no changes. A second troponin is done 3 hours after the first and it remain normal with no changes. Patient discharged home and to follow-up with primary care provider. [] Angie Disclaimer: Angie Disclaimer: This electronic medical record was generated, in whole or in part, using a voice recognition dictation system. Departure Departure Impression: Primary Impression: Arm pain, left Disposition: 01 HOME, SELF-CARE Condition: STABLE Referrals: UNKNOWN PCP NAME (PCP) Patient Instructions: Medical Screening Exam Additional Instructions: Follow-up with your primary care provider. Take medication to help with your pain. No this medication can make you sleepy so do not drive or drink alcohol with this medication. If you begin having chest pain or shortness of breath r eturn to the emergency room. Scripts Hydrocodone/Apap 5-325 (NORCO 5-325 TABLET) 1 Each Tablet 1 TAB PO PRN Q6HRS PRN for PAIN, #8 TAB 0 Refills Prov: RM CERON APRN 11/12/19 Justicifation of Admission Dx: Justifications for Admission: Justification of Admission Dx: N/A RM CERON APRN Nov 12, 2019 13:50
[2019-11-12 14:16] LABS: BILIRUBIN,URINE NEGATIVE (NEG); CLARITY,URINE CLEAR; COLOR,URINE YELLOW; NITRITE,URINE NEGATIVE (NEG); PH,URINE 5.5 (<5.0-8.0); PROTEIN,URINE NEGATIVE (NEG-TRACE); UROBILINOGEN,URINE 0.2 mg/dL (0.2 mg/dL)
[2019-11-12 14:21] LABS: SQUAMOUS EPITHELIAL CELL,UR FEW /LPF
[2019-11-12 14:22] LABS: BACTERIA,URINE FEW /HPF (0-FEW); RBC,URINE 0 /HPF (0-2); WBC,URINE 0 /HPF (0-4)
[2019-11-12 14:26] LABS: CALCIUM 9.5 mg/dL (8.5-10.1); CREATININE 0.7 mg/dL (0.6-1.0); GFR 102.6; POTASSIUM 3.7 mmol/L (3.5-5.1)
[2019-11-12 14:32] LABS: ALBUMIN 3.9 g/dL (3.4-5.0); MAGNESIUM 2.1 mg/dL (1.8-2.4); TOTAL BILIRUBIN 0.3 mg/dL (0.2-1.0); TOTAL PROTEIN 7.9 g/dL (6.4-8.2)
[2019-11-12] MEDS ORDERED: HYDR-3164 PO (17:06)
[2019-11-12 17:41] VITALS: BP 128/62
--- NOTE | 2019-11-13 14:44 | EKG ---
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
== END 2019-11-12 18:13 | disposition home or self-care (01) ==
LOC: ER 12:49
DX: M79.602 Pain in left arm (principal); M19.90 Unspecified osteoarthritis, unspecified site; J42 Unspecified chronic bronchitis; I11.9 Hypertensive heart disease without heart failure; E11.9 Type 2 diabetes mellitus without complications; E78.00 Pure hypercholesterolemia, unspecified; I52 Other heart disorders in diseases classified elsewhere; F17.200 Nicotine dependence, unspecified, uncomplicated; F12.90 Cannabis use, unspecified, uncomplicated; Z90.89 Acquired absence of other organs; Z90.49 Acquired absence of other specified parts of digestive tract; Z98.51 Tubal ligation status; Z98.890 Other specified postprocedural states
CPT/HCPCS: 36415; 71045; 80053; 81001; 83690; 83735; 83880; 84484; 85025; 85379; 85610; 93005; 99285